=== PATIENT | male | born 1955 | race Caucasian/White ===

== ENCOUNTER 2022-08-16 09:39 | Outpatient (CLI) | payer OTHER, SELFPAY ==
--- NOTE | 2022-08-16 10:10 | USCV_ITS ---
Dhruv Gaxiola Age: 67 Gender: M : 1955 Exam Date: 08/16/2022 10:38 Ordering Phys: Jessica Trotter MD Technologist: DEB [place] [facility] [place]: AAA SCREENING. HISTORY: Diameter (cm) AP x Transverse x Length Velocity (cm/s) Waveform Prox Aorta: 3.07 x 2.98 x 87.15 Mid Aorta: 1.49 x 1.63 x 69.40 Distal Aorta: 1.58 x 2.03 x 76.80 Right Iliac Prox: 1.01 x 1.19 x 100.00 Left Iliac Prox: 1.17 x 1.27 x 100.00 Stent Prox Landing x x Aneurysmal Sac Max x x Lt Lat Sac Dim Rt Lat Sac Dim Stent Dist Landing x x Right Iliac Stent x x Left Iliac Stent x x Right Renal Art Left Renal Art FINDINGS: Comparison: none available. A complete assessment of the abdominal aorta was not possible. Proximal aorta not well seen. Remaning aorta is negative. Atherosclerotic plaque is noted in the abdominal aorta, mild. There is no evidence of a right common iliac artery aneurysm. There is no evidence of a left common iliac artery aneurysm. CONCLUSIONS No AAA. Suprarenal aorta limited visualization. Dr. Alethea Luna DO (Electronically Signed) Final Date: 16 August 2022 13:53 S
== END 2022-08-16 09:40 | disposition home or self-care (01) ==
PROVIDERS: PCP Family Medicine; Visit Provider Family Medicine
DX: Z01.89 Encounter for other specified special examinations (principal)
CPT/HCPCS: 76706

== ENCOUNTER → 2023-08-02 08:20 | Outpatient (BNVA) | payer OTHER, SELFPAY | PROVIDERS: PCP Family Medicine; Visit Provider Podiatrist Foot & Ankle Surgery | DX: B35.1 Tinea unguium (principal); E11.9 Type 2 diabetes mellitus without complications; I73.9 Peripheral vascular disease, unspecified | CPT/HCPCS: 11056; 11721; 99203 ==

== ENCOUNTER → 2023-10-04 09:09 | Outpatient (BNVA) | payer OTHER, SELFPAY | PROVIDERS: PCP Family Medicine; Visit Provider Podiatrist Foot & Ankle Surgery | DX: B35.1 Tinea unguium (principal); E11.9 Type 2 diabetes mellitus without complications; I73.9 Peripheral vascular disease, unspecified | CPT/HCPCS: 11721 ==

== ENCOUNTER → 2023-12-27 10:16 | Outpatient (BNVA) | payer OTHER, SELFPAY | PROVIDERS: PCP Family Medicine; Visit Provider Podiatrist Foot & Ankle Surgery | DX: B35.1 Tinea unguium (principal); I73.9 Peripheral vascular disease, unspecified; E11.69 Type 2 diabetes mellitus with other specified complication; Z79.84 Long term (current) use of oral hypoglycemic drugs | CPT/HCPCS: 11721 ==

== ENCOUNTER → 2024-03-30 09:58 | Outpatient (BNVA) | payer OTHER, SELFPAY | PROVIDERS: PCP Family Medicine; Visit Provider Podiatrist Foot & Ankle Surgery | DX: B35.1 Tinea unguium (principal); I73.9 Peripheral vascular disease, unspecified; E11.69 Type 2 diabetes mellitus with other specified complication; Z79.84 Long term (current) use of oral hypoglycemic drugs | CPT/HCPCS: 11721 ==

== ENCOUNTER → 2024-06-03 09:56 | Outpatient (BNVA) | payer OTHER, SELFPAY | PROVIDERS: PCP Family Medicine; Visit Provider Podiatrist Foot & Ankle Surgery | DX: B35.1 Tinea unguium (principal); I73.9 Peripheral vascular disease, unspecified; E11.69 Type 2 diabetes mellitus with other specified complication; Z79.84 Long term (current) use of oral hypoglycemic drugs | CPT/HCPCS: 11721 ==

== ENCOUNTER → 2024-08-12 09:09 | Outpatient (BNVA) | payer OTHER, SELFPAY | PROVIDERS: PCP Family Medicine; Visit Provider Surgery | DX: Z12.11 Encounter for screening for malignant neoplasm of colon (principal) | CPT/HCPCS: 99204 ==

== ENCOUNTER → 2024-08-13 08:28 | Outpatient (BNVA) | payer OTHER, SELFPAY | PROVIDERS: PCP Family Medicine; Visit Provider Podiatrist Foot & Ankle Surgery | DX: E11.69 Type 2 diabetes mellitus with other specified complication (principal); B35.1 Tinea unguium; I73.9 Peripheral vascular disease, unspecified | CPT/HCPCS: 11721 ==

== ENCOUNTER 2024-09-10 10:45 | Day surgery (SDC) | payer OTHER, SELFPAY ==
[2024-09-10 11:12] VITALS: BP 175/91; PULSE 84; RESP 18; TEMP 36.3; O2SAT 98; BMI 33.5
[2024-09-10 11:18] LABS: Glucose Point of Care 80 mg/dL (70-110)
[2024-09-10] MEDS: sodium chloride 0.9% 1,000 ML 30 ML IV (11:18)
--- NOTE | 2024-09-10 11:39 | W.PM.OPSFHP ---
Same Day Surgery H&P Indication for Procedure/HPI DATE OF PROCEDURE: September 10, 2024 CHIEF COMPLAINT/INDICATIONFOR SURGICAL PROCEDURE: need for colon cancer screening PREOP DIAGNOSIS: need for colon cancer screening PLANNED PROCEDURE: Operation Date: 09/10/24 12:40 Proposed Procedures p Colonoscopy 30540 G0105 Z12.11(Not Applicable) - Jaswinder Dove MD Medications/Allergies* Home Medications ?Medication ?Instructions ?Recorded ?Confirmed ?Type atorvastatin 80 mg tablet 80 mg PO DAILY 12/27/23 09/07/24 History data transfer cap, glargine,BT 12/27/23 08/13/24 History ([place] Pen Cap-Lantus device) gabapentin 100 mg capsule 100 mg PO BID 12/27/23 09/07/24 History lisinopril 20 mg tablet 20 mg PO DAILY 12/27/23 09/07/24 History metformin 500 mg tablet 500 mg PO BID 12/27/23 09/07/24 History empagliflozin 25 mg tablet 25 mg PO DAILY 08/12/24 09/07/24 History (Jardiance) glipizide 10 mg tablet 10 mg PO DAILY 08/12/24 09/07/24 History insulin glargine 100 unit/mL 10 unit SUBCUT BID 08/12/24 09/07/24 History subcutaneous solution (Lantus U-100 Insulin) pioglitazone 30 mg tablet 30 mg PO DAILY 08/13/24 09/07/24 History Allergies/Adverse Reactions Allergy/AdvReac Type Severity Reaction Status Date / Time No Known Allergies Allergy Verified 09/07/24 09:48 Current Medications: Generic Name Dose Route Start Last Admin Trade Name Kevinq PRN Reason Stop Dose Admin Sodium Chloride 1,000 mls @ 30 mls/hr 09/10/24 11:15 09/10/24 11:18 Sodium Chloride 0.9% IV 30 mls/hr .Q24H KASSI Administration Pertinent History/Comorbid Conditions* Family History (Updated 08/12/24 @ 09:17 by RADHA Barrett) Colon cancer Grandfather Heart attack Father Social History Smoking and tobacco/nicotine status: unknown if used tobacco/nicotine Alcohol intake: never Pertinent Exam Findings alert, oriented x 3, clear to auscultation bilaterally and regular rate & rhythm Recommendations Surgery/Procedure today Coding Level of Care Code Acute Code for Chg Fwd
--- NOTE | 2024-09-10 12:00 | ANES.PREANE2 ---
Pre-Anesthetic Assessment Height/Weight: Height 1.8 m Weight 108.862 kg Temp Pulse Resp BP Pulse Ox O2 Del Method 97.4 F L 84 18 175/91 98 Room Air 09/10/24 11:12 09/10/24 11:12 09/10/24 11:12 09/10/24 11:12 09/10/24 11:12 09/10/24 11:12 Preop Diagnosis: need for colon cancer screening Operation Date: 09/10/24 12:40 Proposed Procedures p Colonoscopy 25720 G0105 Z12.11(Not Applicable) - Jaswinder Dove MD Familial anesthetic complications: none Was Beta Tiago taken within 24 hours: N/A Was Clonidine taken within 24 hours: N/A Last intake: Intake Last Liquid Date 09/09/24 Last Liquid Time 22:30 Last Solid Date 09/08/24 Last Solid Time 18:00 Social No alcohol and No tobacco Exam alert, oriented x 3 and clear to auscultation bilaterally Airway Mallampati: Class II Dentition: full (broken upper front ) History/ROS No significant history except as noted Pulmonary None reported CV/HEM Hypertension None reported Hepatic None reported GI None reported Metabolic Diabetes Mellitus and Hyperlipidemia [facility] [place] [place] [facility] None reported Neuropsych None reported Anesthetic Plan ASA status: 2 Anesthesia: Anesthesia Evaluation and MAC Risk of > 500 ml blood loss (7ml/kg in children): No Medications/Allergies Home Medications ?Medication ?Instructions ?Recorded ?Confirmed ?Last Taken ?Type atorvastatin 80 mg tablet 80 mg PO DAILY 12/27/23 09/07/24 09/09/24 History data transfer cap, glargine,BT 12/27/23 08/13/24 Unknown History ([place] Pen Cap-Lantus device) gabapentin 100 mg capsule 100 mg PO BID 12/27/23 09/07/24 09/09/24 History lisinopril 20 mg tablet 20 mg PO DAILY 12/27/23 09/07/24 09/09/24 History metformin 500 mg tablet 500 mg PO BID 12/27/23 09/07/24 09/09/24 History empagliflozin 25 mg tablet 25 mg PO DAILY 08/12/24 09/07/24 09/09/24 History (Jardiance) glipizide 10 mg tablet 10 mg PO DAILY 08/12/24 09/07/24 09/10/24 07:00 History insulin glargine 100 unit/mL 10 unit SUBCUT BID 08/12/24 09/07/24 09/09/24 History subcutaneous solution (Lantus U-100 Insulin) ondansetron 8 mg disintegrating 8 mg PO Q8H PRN nausea and 08/12/24 09/10/24 Unknown Rx tablet vomiting #3 tabs pioglitazone 30 mg tablet 30 mg PO DAILY 08/13/24 09/07/24 09/09/24 History Allergies Allergy/AdvReac Type Severity Reaction Status Date / Time No Known Allergies Allergy Verified 09/07/24 09:48 Current Medications Generic Name Dose Route Start Last Admin Trade Name Freq PRN Reason Stop Dose Admin Sodium Chloride 1,000 mls @ 30 mls/hr 09/10/24 11:15 09/10/24 11:18 Sodium Chloride 0.9% IV 30 mls/hr .Q24H KASSI Administration PFSH Anesthesia Family History Grandfather Colon cancer Father Heart attack Social History Smoking and tobacco/nicotine status: unknown if used tobacco/nicotine Alcohol intake: never Data Anesthesia Cardiac Studies: No Data to Display
[2024-09-10 13:10] VITALS: BP 118/70; PULSE 77; RESP 18; TEMP 36.6; O2SAT 95
[2024-09-10 13:20] VITALS: BP 123/70; PULSE 79; RESP 16; O2SAT 95
--- NOTE | 2024-09-10 13:28 | ANE.PACU2 ---
Inpatient post-anesthesia follow up: Airway intact: Yes Vital signs: Temperature 97.9 F Pulse Rate 79 Respiratory Rate 16 Blood Pressure 123/70 Pulse Oximetry 95 Oxygen Delivery Me thod Room Air Oxygen Flow Rate Fraction of Inspir ed Oxygen Hydration adequate: Yes Nausea and vomiting: No Pain level: 1 Mental status: Baseline
== END 2024-09-10 13:28 | disposition home or self-care (01) ==
PROVIDERS: PCP Family Medicine; Visit Provider Surgery
PROC: 0DJD8ZZ Inspection of Lower Intestinal Tract, Via Natural or Artificial Opening Endoscopic (ICD-10-PCS; CPT 45378; principal; 2024-09-10 12:40)
DX: Z12.11 Encounter for screening for malignant neoplasm of colon (principal); K57.30 Diverticulosis of large intestine without perforation or abscess without bleeding; K64.8 Other hemorrhoids; K08.89 Other specified disorders of teeth and supporting structures; E11.9 Type 2 diabetes mellitus without complications; E78.5 Hyperlipidemia, unspecified; Z79.899 Other long term (current) drug therapy; Z79.85 Long-term (current) use of injectable non-insulin antidiabetic drugs; Z79.84 Long term (current) use of oral hypoglycemic drugs; Z79.4 Long term (current) use of insulin
CPT/HCPCS: 36416; 45378; 82962; J2704; J7030; J9999

== ENCOUNTER → 2024-10-14 08:55 | Outpatient (BNVA) | payer OTHER, SELFPAY | PROVIDERS: PCP Family Medicine; Visit Provider Podiatrist Foot & Ankle Surgery | DX: E11.69 Type 2 diabetes mellitus with other specified complication (principal); B35.1 Tinea unguium; I73.9 Peripheral vascular disease, unspecified; L84 Corns and callosities; Z79.4 Long term (current) use of insulin; Z79.84 Long term (current) use of oral hypoglycemic drugs | CPT/HCPCS: 11721 ==

== ENCOUNTER → 2024-12-16 08:55 | Outpatient (BNVA) | payer OTHER, SELFPAY | PROVIDERS: PCP Family Medicine; Visit Provider Podiatrist Foot & Ankle Surgery | DX: E11.69 Type 2 diabetes mellitus with other specified complication (principal); B35.1 Tinea unguium; I73.9 Peripheral vascular disease, unspecified; L84 Corns and callosities; Z79.84 Long term (current) use of oral hypoglycemic drugs; Z79.4 Long term (current) use of insulin | CPT/HCPCS: 11721 ==

== ENCOUNTER → 2025-02-24 09:33 | Outpatient (BNVA) | payer OTHER, SELFPAY | PROVIDERS: PCP Family Medicine; Visit Provider Podiatrist Foot & Ankle Surgery | DX: E11.8 Type 2 diabetes mellitus with unspecified complications (principal); B35.1 Tinea unguium; I73.9 Peripheral vascular disease, unspecified; L84 Corns and callosities; Z79.4 Long term (current) use of insulin; Z79.84 Long term (current) use of oral hypoglycemic drugs | CPT/HCPCS: 11721 ==

== ENCOUNTER → 2025-05-05 09:35 | Outpatient (BNVA) | payer OTHER, SELFPAY | PROVIDERS: PCP Family Medicine; Visit Provider Podiatrist Foot & Ankle Surgery | DX: E11.8 Type 2 diabetes mellitus with unspecified complications (principal); B35.1 Tinea unguium; I73.9 Peripheral vascular disease, unspecified; L84 Corns and callosities; Z79.84 Long term (current) use of oral hypoglycemic drugs; Z79.4 Long term (current) use of insulin | CPT/HCPCS: 11721 ==